=== PATIENT | male | born 1985 | race Caucasian/White ===

== ENCOUNTER 2019-10-19 23:46 | Emergency (ER) | payer SELFPAY ==
[~2019-10-19] VITALS: Ht 157.5 cm; Wt 72.6 kg
[2019-10-19 23:46] VITALS: BP_SYST 131
[2019-10-20] MEDS ORDERED: KETOROLAC TROMETHAMINE 30 MG VIAL IVP ONE (00:15)
[2019-10-20] MEDS ORDERED: DIPH-TET-PERTUS Vaccine 0.5 ML VIAL (ADACEL) I.M. ONE (00:15)
[2019-10-20 00:23] LABS: EOSINOPHILS # (AUTO) 0.1 K/uL (0.0-0.4); HEMATOCRIT 45.6 % (36-54)
[2019-10-20 00:30] LABS: BASOPHILS % (AUTO) 0.2 % (0.0-2.0); EOSINOPHILS % (AUTO) 0.5 % (0.0-4.0); HEMOGLOBIN 15.5 g/dL (14.0-18.0); LYMPHOCYTES # (AUTO) 1.8 K/uL (1.0-5.5); LYMPHOCYTES % (AUTO) 10.6 % (20.5-51.5); MEAN CORPUSCULAR HEMOGLOBIN 33 pg (27-31); MEAN CORPUSCULAR HGB CONC 34 % (32-36); MEAN CORPUSCULAR VOLUME 97 fL (79.0-98.0); MONOCYTES % (AUTO) 5.8 % (1.7-9.3); NEUTROPHILS # (AUTO) 13.7 K/uL (1.8-7.7); NEUTROPHILS % (AUTO) 82.9 % (40.0-70.0); PLATELET COUNT (AUTO) 213 K/uL (130-430); RED BLOOD CELL COUNT(AUTO) 4.69 MIL/uL (4.2-6.2); RED CELL DISTRIBUTION WIDTH 13.3 % (9.0-15.0); WHITE BLOOD COUNT (AUTO) 16.6 K/uL (4.8-10.8)
[2019-10-20 00:37] LABS: CREATININE 1.19 mg/dL (0.55-1.30); POTASSIUM 3.8 mmol/L (3.5-5.1)
[2019-10-20 00:43] LABS: TOTAL BILIRUBIN 0.3 mg/dL (0.0-1.0)
[2019-10-20] MEDS ORDERED: IOHEXOL 100 ML IV ONE (00:53)
[2019-10-20] MEDS ORDERED: NACL 0.9% 1,000 ML IV ONE (01:00)
[2019-10-20 02:40] VITALS: BP_SYST 109
== END 2019-10-20 02:40 | disposition home or self-care (01) ==
LOC: SED 23:46
DX: R07.89 Other chest pain (principal); V43.53XA Car driver injured in collision with pick-up truck in traffic accident, initial encounter; Y93.89 Activity, other specified; Y92.413 State road as the place of occurrence of the external cause; Y99.8 Other external cause status
CPT/HCPCS: 36415; 70450-TC; 71260-TC; 72125-TC; 73564; 80053; 84484; 85025; 90715; 93005; 96374; 99285; J1885; J7030; Q9967